=== PATIENT | female | born 1950 | race African-American/Black ===

== ENCOUNTER 2018-02-02 20:25 | Inpatient (IN) | payer MEDICARE, MEDICAID ==
[~2018-02-02] VITALS: Ht 160 cm; Wt 64.9 kg
[2018-02-02 20:25] VITALS: BP 127/69
[~2018-02-02 20:25] MED LIST: APIX2.5T PO; APIX5TAB PO; ASPI-867 PO; ATOR20TA65 PO; DIGO125T82 PO; DIGO250T81 PO; DILT180C3 PO; SERT-112 PO; SERT100T PO; THIA100T72 PO
[2018-02-02 21:00] VITALS: BP 127/69
[2018-02-02] MEDS ORDERED: DIPHENHYDRAMINE 50MG/ML VIAL IV PRN (21:30)
[2018-02-02] MEDS ORDERED: CLONIDINE 0.1MG TABLET PO PRN (21:30)
[2018-02-02] MEDS ORDERED: IPRATROPIUM/ALBUTEROL 0.5-3(2.5)MG/3ML NEB INH PRN (21:30)
[2018-02-02] MEDS ORDERED: NA PHOS,M-B/NA PHOS,DI-BA ENEMA 118ML PR PRN (21:30)
[2018-02-02] MEDS ORDERED: GUAIFENESIN 200MG/10ML SUGAR FREE UDC PO PRN (21:30)
[2018-02-02] MEDS ORDERED: MAGNESIUM/ALUMINUM HYDROXIDE/SIMETHICONE 30ML UDC PO PRN (21:30)
[2018-02-02] MEDS ORDERED: ONDANSETRON 4MG ODT PO PRN (21:30)
[2018-02-02] MEDS ORDERED: DOCUSATE SODIUM 100MG CAPSULE PO PRN (21:30)
[2018-02-02] MEDS: SODIUM CHLORIDE 0.9% INJ 3ML FLUSH IVF SCH (22:50)
[2018-02-03] MEDS: SODIUM CHLORIDE 0.9% INJ 3ML FLUSH IVF SCH ×3 (06:38→21:36)
[2018-02-03 07:06] LABS: CHLORIDE 103 mEq/L (98-107)
[2018-02-03 07:50] LABS: HEMATOCRIT. 36.2 % (36.0-48.0); HEMOGLOBIN. 12.4 g/dL (12.0-16.0); MEAN CORPUSCULAR HEMOGLOBIN 36.4 pg (28.0-32.0); MEAN CORPUSCULAR VOLUME 105.9 fL (81.0-99.0); MEAN PLATELET VOLUME 8.8 fl (7.4-10.4); PLATELET 207 x1000/uL (130-400); RED BLOOD CELL COUNT 3.41 mill/uL (4.2-5.4); RED CELL DISTRIBUTION WIDTH 13.1 % (11.6-14.6)
[2018-02-03 08:00] VITALS: BP 163/76
[2018-02-03 08:03] LABS: LDL CHOLESTEROL 48 mg/dL (5-100)
[2018-02-03 08:04] LABS: HDL CHOLESTEROL 33 mg/dL (40-59)
[2018-02-03] MEDS: DILTIAZEM HCL 180MG CAPSULE CD 24HR PO SCH (09:14)
[2018-02-03] MEDS: HYDROCODONE/ACETAMINOPHEN 5/325MG TABLET PO PRN (09:15)
[2018-02-03] MEDS: SERTRALINE HCL 100MG TABLET PO SCH (09:16)
[2018-02-03] MEDS: APIXABAN 2.5 MG TABLET PO SCH ×2 (09:16→18:15)
[2018-02-03] MEDS: ASPIRIN 325MG EC TABLET PO SCH (09:16)
[2018-02-03 10:40] VITALS: BP 131/66
[2018-02-03 15:52] LABS: PLATELET ESTIMATE NORMAL
[2018-02-03] MEDS: DIGOXIN 125MCG TABLET PO SCH (18:16)
[2018-02-03 20:00] VITALS: BP 117/72
[2018-02-04] MEDS: SODIUM CHLORIDE 0.9% INJ 3ML FLUSH IVF SCH ×2 (06:15→14:00)
[2018-02-04] MEDS: HYDROCODONE/ACETAMINOPHEN 5/325MG TABLET PO PRN ×2 (06:40→21:51)
[2018-02-04 08:00] VITALS: BP 130/81
[2018-02-04] MEDS: APIXABAN 2.5 MG TABLET PO SCH ×2 (09:31→18:17)
[2018-02-04] MEDS: ASPIRIN 325MG EC TABLET PO SCH (09:31)
[2018-02-04] MEDS: SERTRALINE HCL 100MG TABLET PO SCH (09:31)
[2018-02-04] MEDS: DILTIAZEM HCL 180MG CAPSULE CD 24HR PO SCH (09:32)
[2018-02-04 09:44] LABS: HEPATITIS B SURFACE ANTIGEN NEGATIVE
[2018-02-04 10:12] LABS: HEPATITIS B CORE AB IGM NEGATIVE
[2018-02-04 10:13] LABS: HEPATITIS A AB IGM NEGATIVE (NEGATIVE)
[2018-02-04] MEDS ORDERED: MEGESTROL ACETATE 400 MG/10 ML UDC PO SCH (17:00)
[2018-02-04] MEDS: MEGESTROL ACETATE 400 MG/10 ML UDC PO SCH (18:16)
[2018-02-04] MEDS: DIGOXIN 125MCG TABLET PO SCH (18:17)
[2018-02-04 20:00] VITALS: BP 135/60
[2018-02-05] MEDS: ACETAMINOPHEN 325MG TABLET PO PRN (03:21)
[2018-02-05 08:00] VITALS: BP 150/63
[2018-02-05] MEDS: ASPIRIN 325MG EC TABLET PO SCH (08:24)
[2018-02-05] MEDS: DILTIAZEM HCL 180MG CAPSULE CD 24HR PO SCH (08:25)
[2018-02-05] MEDS: SERTRALINE HCL 100MG TABLET PO SCH (08:25)
[2018-02-05] MEDS: MEGESTROL ACETATE 400 MG/10 ML UDC PO SCH (08:25)
[2018-02-05] MEDS: APIXABAN 2.5 MG TABLET PO SCH ×2 (08:25→17:01)
[2018-02-05] MEDS: DIGOXIN 125MCG TABLET PO SCH (17:01)
[2018-02-05 17:05] VITALS: BP 108/63
[2018-02-05] MEDS: HYDROCODONE/ACETAMINOPHEN 5/325MG TABLET PO PRN ×2 (17:11→22:33)
[2018-02-05 20:00] VITALS: BP 104/60
[2018-02-06 08:00] VITALS: BP 105/60
[2018-02-06] MEDS: APIXABAN 2.5 MG TABLET PO SCH ×2 (08:36→17:34)
[2018-02-06] MEDS: MEGESTROL ACETATE 400 MG/10 ML UDC PO SCH (08:36)
[2018-02-06] MEDS: DILTIAZEM HCL 180MG CAPSULE CD 24HR PO SCH (08:37)
[2018-02-06] MEDS: ASPIRIN 325MG EC TABLET PO SCH (08:37)
[2018-02-06] MEDS: SERTRALINE HCL 100MG TABLET PO SCH (08:37)
[2018-02-06] MEDS: HYDROCODONE/ACETAMINOPHEN 5/325MG TABLET PO PRN ×2 (08:41→21:58)
[2018-02-06] MEDS: DIGOXIN 125MCG TABLET PO SCH (17:34)
[2018-02-06 20:00] VITALS: BP 114/61
[2018-02-07 07:28] LABS: HEMATOCRIT. 34.2 % (36.0-48.0); HEMOGLOBIN. 11.8 g/dL (12.0-16.0); MEAN CORPUSCULAR HEMOGLOBIN 36.3 pg (28.0-32.0); MEAN CORPUSCULAR VOLUME 105.6 fL (81.0-99.0); MEAN PLATELET VOLUME 7.7 fl (7.4-10.4); PLATELET 434 x1000/uL (130-400); RED BLOOD CELL COUNT 3.24 mill/uL (4.2-5.4); RED CELL DISTRIBUTION WIDTH 13.3 % (11.6-14.6)
[2018-02-07 07:49] LABS: CHLORIDE 103 mEq/L (98-107)
[2018-02-07 08:00] VITALS: BP 120/66
[2018-02-07] MEDS: SERTRALINE HCL 100MG TABLET PO SCH (09:09)
[2018-02-07] MEDS: APIXABAN 2.5 MG TABLET PO SCH ×2 (09:09→17:09)
[2018-02-07] MEDS: ASPIRIN 325MG EC TABLET PO SCH (09:09)
[2018-02-07] MEDS: MEGESTROL ACETATE 400 MG/10 ML UDC PO SCH (09:09)
[2018-02-07] MEDS: DILTIAZEM HCL 180MG CAPSULE CD 24HR PO SCH (09:09)
[2018-02-07 11:18] LABS: ATYPICAL LYMPHOCYTES 1; PLATELET ESTIMATE SLIGHTLY INCREASED
[2018-02-07] MEDS: HYDROCODONE/ACETAMINOPHEN 5/325MG TABLET PO PRN (15:02)
[2018-02-07] MEDS: DIGOXIN 125MCG TABLET PO SCH (17:09)
[2018-02-07 20:00] VITALS: BP 143/60
[2018-02-07] MEDS ORDERED: POTASSIUM CHLORIDE 20MEQ TABLET SR PO NR (21:00)
[2018-02-08] MEDS: HYDROCODONE/ACETAMINOPHEN 5/325MG TABLET PO PRN ×2 (06:31→23:19)
[2018-02-08 07:34] LABS: CHLORIDE 104 mEq/L (98-107)
[2018-02-08 08:00] VITALS: BP 107/65
[2018-02-08] MEDS: ASPIRIN 325MG EC TABLET PO SCH (09:10)
[2018-02-08] MEDS: SERTRALINE HCL 100MG TABLET PO SCH (09:10)
[2018-02-08] MEDS: MEGESTROL ACETATE 400 MG/10 ML UDC PO SCH (09:10)
[2018-02-08] MEDS: APIXABAN 2.5 MG TABLET PO SCH ×2 (09:10→17:36)
[2018-02-08] MEDS: DILTIAZEM HCL 180MG CAPSULE CD 24HR PO SCH (09:18)
[2018-02-08] MEDS: DIGOXIN 125MCG TABLET PO SCH (17:37)
[2018-02-08 20:00] VITALS: BP 117/70
[2018-02-08] MEDS: ACETAMINOPHEN 325MG TABLET PO PRN (23:04)
[2018-02-09 07:00] VITALS: BP 133/55
[2018-02-09] MEDS: MEGESTROL ACETATE 400 MG/10 ML UDC PO SCH (08:44)
[2018-02-09] MEDS: ASPIRIN 325MG EC TABLET PO SCH (08:44)
[2018-02-09] MEDS: SERTRALINE HCL 100MG TABLET PO SCH (08:44)
[2018-02-09] MEDS: APIXABAN 2.5 MG TABLET PO SCH ×2 (08:44→17:22)
[2018-02-09] MEDS: DILTIAZEM HCL 180MG CAPSULE CD 24HR PO SCH (08:45)
[2018-02-09] MEDS: HYDROCODONE/ACETAMINOPHEN 5/325MG TABLET PO PRN (08:49)
[2018-02-09] MEDS: DIGOXIN 125MCG TABLET PO SCH (17:22)
[2018-02-09 20:00] VITALS: BP 116/72
[2018-02-09] MEDS: HYDROCODONE/ACETAMINOPHEN 5/325MG TABLET PO SCH (21:22)
[2018-02-09 23:43] VITALS: BP 118/70
[2018-02-10 07:57] VITALS: BP 138/80
[2018-02-10 08:00] VITALS: BP 138/80
[2018-02-10] MEDS: MEGESTROL ACETATE 400 MG/10 ML UDC PO SCH ×2 (08:38→09:00)
[2018-02-10] MEDS: ASPIRIN 325MG EC TABLET PO SCH (08:39)
[2018-02-10] MEDS: APIXABAN 2.5 MG TABLET PO SCH ×2 (08:39→17:30)
[2018-02-10] MEDS: DILTIAZEM HCL 180MG CAPSULE CD 24HR PO SCH (08:39)
[2018-02-10] MEDS: SERTRALINE HCL 100MG TABLET PO SCH (08:39)
[2018-02-10] MEDS: HYDROCODONE/ACETAMINOPHEN 5/325MG TABLET PO PRN ×2 (08:41→13:37)
[2018-02-10] MEDS: DIGOXIN 125MCG TABLET PO SCH (17:30)
[2018-02-10 20:00] VITALS: BP 128/71
[2018-02-11] MEDS: HYDROCODONE/ACETAMINOPHEN 5/325MG TABLET PO SCH ×2 (00:01→21:41)
[2018-02-11] MEDS: ASPIRIN 325MG EC TABLET PO SCH (09:01)
[2018-02-11] MEDS: SERTRALINE HCL 100MG TABLET PO SCH (09:01)
[2018-02-11] MEDS: APIXABAN 2.5 MG TABLET PO SCH ×2 (09:01→18:34)
[2018-02-11] MEDS: MEGESTROL ACETATE 400 MG/10 ML UDC PO SCH (09:01)
[2018-02-11] MEDS: DILTIAZEM HCL 180MG CAPSULE CD 24HR PO SCH (09:28)
[2018-02-11 12:00] VITALS: BP 118/82
[2018-02-11] MEDS: HYDROCODONE/ACETAMINOPHEN 5/325MG TABLET PO PRN (12:43)
[2018-02-11] MEDS: DIGOXIN 125MCG TABLET PO SCH (18:34)
[2018-02-11 20:00] VITALS: BP 118/74
[2018-02-12 08:00] VITALS: BP 134/75
[2018-02-12] MEDS: MEGESTROL ACETATE 400 MG/10 ML UDC PO SCH (09:25)
[2018-02-12] MEDS: ASPIRIN 325MG EC TABLET PO SCH (09:25)
[2018-02-12] MEDS: APIXABAN 2.5 MG TABLET PO SCH (09:26)
[2018-02-12] MEDS: SERTRALINE HCL 100MG TABLET PO SCH (09:26)
[2018-02-12] MEDS: DILTIAZEM HCL 180MG CAPSULE CD 24HR PO SCH (09:26)
[2018-02-12 13:53] VITALS: BP 134/75
== END 2018-02-12 14:50 | disposition home health service (06) | DRG 563 ==
PROVIDERS: ADMIT Psychiatry & Neurology Neurology; ATTEND Family Medicine
DX: S42.144A Nondisplaced fracture of glenoid cavity of scapula, right shoulder, initial encounter for closed fracture (principal); M62.82 Rhabdomyolysis; I48.1 Persistent atrial fibrillation; I48.92 Unspecified atrial flutter; N39.0 Urinary tract infection, site not specified; E46 Unspecified protein-calorie malnutrition; F33.1 Major depressive disorder, recurrent, moderate; I50.30 Unspecified diastolic (congestive) heart failure; W01.0XXA Fall on same level from slipping, tripping and stumbling without subsequent striking against object, initial encounter; R79.89 Other specified abnormal findings of blood chemistry; Y90.1 Blood alcohol level of 20-39 mg/100 ml; E78.5 Hyperlipidemia, unspecified; K57.90 Diverticulosis of intestine, part unspecified, without perforation or abscess without bleeding; E87.6 Hypokalemia; F03.90 Unspecified dementia, unspecified severity, without behavioral disturbance, psychotic disturbance, mood disturbance, and anxiety; M81.0 Age-related osteoporosis without current pathological fracture; R74.0 Nonspecific elevation of levels of transaminase and lactic acid dehydrogenase [LDH]; K82.4 Cholesterolosis of gallbladder; K76.0 Fatty (change of) liver, not elsewhere classified; F17.210 Nicotine dependence, cigarettes, uncomplicated; E11.42 Type 2 diabetes mellitus with diabetic polyneuropathy; F41.9 Anxiety disorder, unspecified; G89.4 Chronic pain syndrome; I11.0 Hypertensive heart disease with heart failure; I49.5 Sick sinus syndrome; K70.0 Alcoholic fatty liver; F10.129 Alcohol abuse with intoxication, unspecified; Y93.89 Activity, other specified; Y92.89 Other specified places as the place of occurrence of the external cause; Y99.8 Other external cause status; Z79.01 Long term (current) use of anticoagulants; Z95.0 Presence of cardiac pacemaker; Z85.038 Personal history of other malignant neoplasm of large intestine; Z86.73 Personal history of transient ischemic attack (TIA), and cerebral infarction without residual deficits; Z68.25 Body mass index [BMI] 25.0-25.9, adult
CPT/HCPCS: 36415; 76700; 80048; 80053; 80061; 80076; 82248; 85025; 86705; 86709; 86803; 86900; 87340; 92523; 93005; 97110; 97112; 97116; 97140; 97162; 97166; 97530; 97535; G0515

== ENCOUNTER 2018-10-19 05:31 | Inpatient (IN) | payer MEDICARE, MEDICAID ==
[~2018-10-19] VITALS: Ht 157.5 cm; Wt 73.0 kg
[~2018-10-19 05:31] MED LIST changes: -APIX5TAB PO; +ASA5EC PO; -ASPI-867 PO; -DIGO250T81 PO; -SERT100T PO
[2018-10-19 05:50] LABS: BASOPHILS % 0.5 % (0.0-2.0); EOSINOPHILS % 0.1 % (0.0-5.0); HEMATOCRIT. 38.4 % (36.0-48.0); HEMOGLOBIN. 13.5 g/dL (12.0-16.0); LYMPHOCYTES % 68.7 % (20.0-50.0); MEAN CORPUSCULAR VOLUME 111.1 fL (81.0-99.0); MEAN PLATELET VOLUME 8.3 fl (7.4-10.4); MONOCYTES % 10.3 % (2.0-8.0); NEUTROPHILS % 20.4 % (40.0-76.0); PLATELET 122 x1000/uL (130-400); RED BLOOD CELL COUNT 3.45 mill/uL (4.2-5.4); RED CELL DISTRIBUTION WIDTH 14.3 % (11.6-14.6)
[2018-10-19 05:54] LABS: CHLORIDE 108 mEq/L (98-107)
[2018-10-19 05:57] LABS: INR 1.2
[2018-10-19 05:58] LABS: ETHANOL BLOOD 234 mg/dL
[2018-10-19] MEDS ORDERED: GUAIFENESIN 200MG/10ML SUGAR FREE UDC PO PRN (07:45)
[2018-10-19] MEDS ORDERED: DOCUSATE SODIUM 100MG CAPSULE PO PRN (07:45)
[2018-10-19] MEDS ORDERED: ACETAMINOPHEN 325MG TABLET PO PRN (07:45)
[2018-10-19] MEDS ORDERED: ONDANSETRON HCL 4MG/2ML INJ IV PRN (07:45)
[2018-10-19] MEDS ORDERED: CLONIDINE 0.1MG TABLET PO PRN (07:45)
[2018-10-19] MEDS ORDERED: AMLODIPINE 10MG TABLET PO NR (09:00)
[2018-10-19] MEDS: SODIUM CHLORIDE 0.45% 1,000 ML IV SCH (09:03)
[2018-10-19 10:37] VITALS: BP 140/88
[2018-10-19 12:00] VITALS: BP 156/96
[2018-10-19] MEDS ORDERED: POTASSIUM CHLORIDE 20MEQ TABLET SR PO SCH (13:15)
[2018-10-19] MEDS ORDERED: DILTIAZEM HCL 5MG/ML 5ML VIAL IV PRN (13:15)
[2018-10-19] MEDS: DILTIAZEM HCL 180MG CAPSULE CD 24HR PO SCH (14:39)
[2018-10-19] MEDS: LOSARTAN POTASSIUM 25 MG TABLET PO SCH (14:39)
[2018-10-19] MEDS: THIAMINE HCL 100MG TABLET PO SCH (14:39)
[2018-10-19] MEDS: APIXABAN 2.5 MG TABLET PO SCH ×2 (14:39→22:40)
[2018-10-19] MEDS: SERTRALINE HCL 100MG TABLET PO SCH (14:39)
[2018-10-19 16:00] VITALS: BP 158/92
[2018-10-19] MEDS ORDERED: DIGOXIN 125MCG TABLET PO SCH (18:00)
[2018-10-19] MEDS: DIGOXIN 250MCG TABLET PO SCH (19:00)
[2018-10-19 20:00] VITALS: BP 132/78
[2018-10-19] MEDS: HYDROCODONE/ACETAMINOPHEN 5/325MG TABLET PO PRN (22:41)
[2018-10-20] VITALS: BP 97/76
[2018-10-20] MEDS: HYDROCODONE/ACETAMINOPHEN 5/325MG TABLET PO PRN (02:53)
[2018-10-20 04:00] VITALS: BP_SYST 137; BP_SYST 140; BP_DIAS 72; BP_DIAS 82
[2018-10-20 07:27] LABS: HEMATOCRIT. 35.4 % (36.0-48.0); HEMOGLOBIN. 12.2 g/dL (12.0-16.0); MEAN CORPUSCULAR HEMOGLOBIN 38.8 pg (28.0-32.0); PLATELET 103 x1000/uL (130-400); RED BLOOD CELL COUNT 3.13 mill/uL (4.2-5.4); RED CELL DISTRIBUTION WIDTH 14.6 % (11.6-14.6)
[2018-10-20 08:00] VITALS: BP 126/67
[2018-10-20 08:17] LABS: CHLORIDE 106 mEq/L (98-107)
[2018-10-20] MEDS ORDERED: LORAZEPAM 2MG/ML CPJ IV PRN (08:30)
[2018-10-20 08:31] LABS: LDL CHOLESTEROL 108 mg/dL (5-100)
[2018-10-20 08:32] LABS: HDL CHOLESTEROL 56 mg/dL (40-59)
[2018-10-20] MEDS ORDERED: AMLODIPINE 10MG TABLET PO SCH (09:00)
[2018-10-20] MEDS: APIXABAN 2.5 MG TABLET PO SCH (09:11)
[2018-10-20] MEDS: THIAMINE HCL 100MG TABLET PO SCH (09:11)
[2018-10-20] MEDS: DILTIAZEM HCL 180MG CAPSULE CD 24HR PO SCH (09:11)
[2018-10-20] MEDS: LOSARTAN POTASSIUM 25 MG TABLET PO SCH (09:12)
[2018-10-20] MEDS: SERTRALINE HCL 100MG TABLET PO SCH (09:12)
[2018-10-20] MEDS ORDERED: MAGNESIUM SULFATE 3 GM in DEXT 5% WATER 96 ML IV SCH (10:00)
[2018-10-20 10:24] LABS: PLATELET ESTIMATE SLIGHTLY DECREASED
[2018-10-20] MEDS ORDERED: POTASSIUM CHLORIDE 20MEQ TABLET SR PO NR (10:30)
[2018-10-20] MEDS: CHLORDIAZEPOXIDE 25MG CAPSULE PO SCH ×3 (10:39→21:01)
[2018-10-20 12:00] VITALS: BP 118/69
[2018-10-20 16:00] VITALS: BP 98/50
[2018-10-20] MEDS: SODIUM CHLORIDE 0.45% 1,000 ML IV SCH (18:20)
[2018-10-20] MEDS: DIGOXIN 250MCG TABLET PO SCH (18:58)
[2018-10-20 20:06] VITALS: BP 97/62
[2018-10-20] MEDS ORDERED: ATORVASTATIN CALCIUM 40MG TABLET PO SCH (21:00)
[2018-10-20] MEDS: APIXABAN 5 MG TABLET PO SCH (21:01)
[2018-10-21 00:05] VITALS: BP 103/58
[2018-10-21 03:59] LABS: *AMPHETAMINES SCREEN URINE NEGATIVE (NEGATIVE); *BARBITURATES SCREEN URINE NEGATIVE (NEGATIVE)
[2018-10-21 04:00] VITALS: BP 103/63
[2018-10-21 04:00] LABS: *BENZODIAZEPINES SCREEN URINE PRESUMTIVE POSITIVE (NEGATIVE); *COCAINE SCREEN URINE NEGATIVE (NEGATIVE); METHADONE URINE SCREEN NEGATIVE (NEGATIVE); OPIATES URINE SCREEN PRESUMTIVE POSITIVE (NEGATIVE); PHENCYCLIDINE URINE SCREEN NEGATIVE (NEGATIVE)
[2018-10-21 04:01] LABS: CANNABINOID URINE SCREEN NEGATIVE (NEGATIVE)
[2018-10-21] MEDS: CHLORDIAZEPOXIDE 25MG CAPSULE PO SCH ×2 (05:49→14:00)
[2018-10-21 07:06] LABS: BASOPHILS % 0.3 % (0.0-2.0); EOSINOPHILS % 0.3 % (0.0-5.0); HEMOGLOBIN. 11.6 g/dL (12.0-16.0); LYMPHOCYTES % 26.4 % (20.0-50.0); MEAN CORPUSCULAR HEMOGLOBIN 39.1 pg (28.0-32.0); MEAN CORPUSCULAR VOLUME 114.2 fL (81.0-99.0); MEAN PLATELET VOLUME 9.5 fl (7.4-10.4); MONOCYTES % 14.5 % (2.0-8.0); NEUTROPHILS % 58.5 % (40.0-76.0); PLATELET 98 x1000/uL (130-400); RED BLOOD CELL COUNT 2.97 mill/uL (4.2-5.4); RED CELL DISTRIBUTION WIDTH 14.7 % (11.6-14.6)
[2018-10-21 07:46] LABS: CHLORIDE 107 mEq/L (98-107)
[2018-10-21 08:00] VITALS: BP 102/71
[2018-10-21] MEDS: LOSARTAN POTASSIUM 25 MG TABLET PO SCH ×2 (09:00→09:18)
[2018-10-21] MEDS: DILTIAZEM HCL 180MG CAPSULE CD 24HR PO SCH (09:00)
[2018-10-21] MEDS: THIAMINE HCL 100MG TABLET PO SCH (09:18)
[2018-10-21] MEDS: SERTRALINE HCL 100MG TABLET PO SCH (09:18)
[2018-10-21] MEDS: APIXABAN 5 MG TABLET PO SCH (09:18)
[2018-10-21] MEDS: SODIUM CHLORIDE 0.45% 1,000 ML IV SCH (11:00)
[2018-10-21 11:52] VITALS: BP 91/50
== END 2018-10-21 15:15 | disposition home health service (06) | DRG 897 ==
LOC: ER 05:31 → 7WST 07:01 → SUPCPDRO 07:41 → ENRESERV 10:05
PROVIDERS: ADMIT Hospitalist; ATTEND Hospitalist
DX: F10.239 Alcohol dependence with withdrawal, unspecified (principal); D68.59 Other primary thrombophilia; I48.92 Unspecified atrial flutter; I48.0 Paroxysmal atrial fibrillation; R74.0 Nonspecific elevation of levels of transaminase and lactic acid dehydrogenase [LDH]; F10.229 Alcohol dependence with intoxication, unspecified; D69.6 Thrombocytopenia, unspecified; I25.10 Atherosclerotic heart disease of native coronary artery without angina pectoris; E83.42 Hypomagnesemia; E78.5 Hyperlipidemia, unspecified; E78.00 Pure hypercholesterolemia, unspecified; I49.5 Sick sinus syndrome; I10 Essential (primary) hypertension; Y90.7 Blood alcohol level of 200-239 mg/100 ml; I48.2 Chronic atrial fibrillation; F32.9 Major depressive disorder, single episode, unspecified; F41.9 Anxiety disorder, unspecified; I25.2 Old myocardial infarction; Z72.0 Tobacco use; Z79.01 Long term (current) use of anticoagulants; Z86.73 Personal history of transient ischemic attack (TIA), and cerebral infarction without residual deficits; Z79.82 Long term (current) use of aspirin; Z79.899 Other long term (current) drug therapy
CPT/HCPCS: 36415; 71045; 80061; 80162; 80305; 80320; 83735; 83880; 84484; 85379; 93005; 93306; 93970; 97162; 99285; J2060; J2405; J3475; J7060; G0480

== ENCOUNTER 2019-04-08 13:23 | Inpatient (IN) | payer MEDICAID, MEDICARE ==
[~2019-04-08] VITALS: Ht 160 cm; Wt 62.1 kg
[~2019-04-08 13:23] MED LIST changes: -ASA5EC PO; +ASPI325T85 PO
[2019-04-08] MEDS ORDERED: DILTIAZEM HCL 30MG TABLET PO ONE (14:15)
[2019-04-08] MEDS ORDERED: DILTIAZEM HCL 5MG/ML 5ML VIAL IV ONE ×2 (14:15→16:00)
[2019-04-08 14:37] LABS: BASOPHILS % 0.4 % (0.0-2.0); EOSINOPHILS % 0.1 % (0.0-5.0); HEMATOCRIT. 27.7 % (36.0-48.0); HEMOGLOBIN. 9.7 g/dL (12.0-16.0); LYMPHOCYTES % 21.5 % (20.0-50.0); MEAN CORPUSCULAR HEMOGLOBIN 40.1 pg (28.0-32.0); MEAN CORPUSCULAR VOLUME 114.8 fL (81.0-99.0); MONOCYTES % 13.5 % (2.0-8.0); NEUTROPHILS % 64.5 % (40.0-76.0); PLATELET 129 x1000/uL (130-400); RED BLOOD CELL COUNT 2.41 mill/uL (4.2-5.4); RED CELL DISTRIBUTION WIDTH 15.1 % (11.6-14.6)
[2019-04-08 14:41] LABS: CHLORIDE 100 mEq/L (98-107); INR 1.6; PARTIAL THROMBOPLASTIN TIME 28.8 sec (23.4-31.0); PROTHROMBIN TIME 15.7 sec (9.6-11.0)
[2019-04-08 14:46] LABS: ETHANOL BLOOD < 10 mg/dL
[2019-04-08 14:56] LABS: CREATINE KINASE MB FRACTION 5.2 ng/mL (0.5-3.6)
[2019-04-08] MEDS ORDERED: LORAZEPAM 2MG/ML CPJ IV ONE ×2 (15:00→20:30)
[2019-04-08 15:03] LABS: CREATINE KINASE 1198 IU/L (26-192)
[2019-04-08 15:08] LABS: DIGOXIN 0.2 ng/mL (0.9-2.0)
[2019-04-08] MEDS ORDERED: DILTIAZEM HCL 125 MG in DEXT 5% WATER 100 ML IV ONE ×2 (16:00→16:15)
[2019-04-08] MEDS ORDERED: SODIUM CHLORIDE 0.9% 1,000 ML IV ONE (16:43)
[2019-04-08] MEDS ORDERED: CALCIUM CHLORIDE 1GM/10ML SYR IV ONE (16:45)
[2019-04-08 17:37] LABS: HEPATITIS B SURFACE ANTIGEN NEGATIVE
[2019-04-08 18:07] LABS: HEPATITIS A AB IGM NEGATIVE (NEGATIVE)
[2019-04-08] MEDS ORDERED: AMIODARONE HCL 150 MG in DEXT 5% WATER 100 ML IV ONE (20:00)
[2019-04-08 20:05] LABS: CLARITY URINE CLOUDY (CLEAR); COLOR URINE DARK YELLOW (YELLOW); KETONES URINE TRACE (NEGATIVE); LEUKOCYTE ESTERASE URINE 1+ (NEGATIVE); NITRITE URINE POSITIVE (NEGATIVE); OCCULT BLOOD URINE NEGATIVE (NEGATIVE); PROTEIN URINE TRACE (NEGATIVE); SPECIFIC GRAVITY URINE 1.023 (1.005-1.030)
[2019-04-08 20:23] LABS: *AMPHETAMINES SCREEN URINE NEGATIVE (NEGATIVE); CANNABINOID URINE SCREEN NEGATIVE (NEGATIVE)
[2019-04-08 20:24] LABS: *BARBITURATES SCREEN URINE NEGATIVE (NEGATIVE); *BENZODIAZEPINES SCREEN URINE PRESUMTIVE POSITIVE (NEGATIVE); *COCAINE SCREEN URINE NEGATIVE (NEGATIVE); METHADONE URINE SCREEN NEGATIVE (NEGATIVE); OPIATES URINE SCREEN NEGATIVE (NEGATIVE)
[2019-04-08 20:25] LABS: PHENCYCLIDINE URINE SCREEN NEGATIVE (NEGATIVE)
[2019-04-08] MEDS ORDERED: DIAZEPAM 2 MG TABLET PO ONE (21:00)
[2019-04-08 22:00] VITALS: BP 104/73
[2019-04-08] MEDS ORDERED: POTASSIUM CHLORIDE 20MEQ TABLET SR PO ONE (22:00)
[2019-04-08 22:15] VITALS: BP 111/75
[2019-04-08 22:30] VITALS: BP 114/72
[2019-04-08 23:45] VITALS: BP 110/76
[2019-04-09] VITALS (89 sets, daily range): BP systolic 89–152; BP diastolic 54–102
[2019-04-09] MEDS: DILTIAZEM HCL 125 MG in DEXT 5% WATER 100 ML IV PRN ×3 (01:14→17:19)
[2019-04-09 05:21] LABS: HEMATOCRIT. 24.2 % (36.0-48.0); HEMOGLOBIN. 8.4 g/dL (12.0-16.0); MEAN CORPUSCULAR HEMOGLOBIN 39.8 pg (28.0-32.0); MEAN PLATELET VOLUME 10.2 fl (7.4-10.4); PLATELET 120 x1000/uL (130-400); RED BLOOD CELL COUNT 2.12 mill/uL (4.2-5.4); RED CELL DISTRIBUTION WIDTH 14.9 % (11.6-14.6)
[2019-04-09 05:23] LABS: CHLORIDE 105 mEq/L (98-107)
[2019-04-09] MEDS: CHLORDIAZEPOXIDE 5 MG CAPSULE PO SCH ×3 (06:13→21:31)
[2019-04-09] MEDS ORDERED: DIGOXIN 500MCG/2ML AMP IV NR ×2 (08:00→11:00)
[2019-04-09] MEDS: SERTRALINE HCL 100MG TABLET PO SCH (08:34)
[2019-04-09] MEDS: THIAMINE HCL 100MG TABLET PO SCH (08:34)
[2019-04-09 08:44] LABS: NUCLEATED RED BLOOD CELLS 6 /100 WBC; PLATELET ESTIMATE NORMAL
[2019-04-09] MEDS ORDERED: APIXABAN 2.5 MG TABLET PO SCH (09:00)
[2019-04-09] MEDS: MAGNESIUM 2 G PREMIX 50 ML IV SCH (09:00)
[2019-04-09] MEDS ORDERED: KCL 20MEQ/100ML PREMIX 100 ML IV NR ×2 (09:00→21:00)
[2019-04-09] MEDS ORDERED: ASPIRIN 81MG TABLET PO SCH (09:00)
[2019-04-09 17:35] LABS: HEMATOCRIT 26.7 % (36.0-48.0); HEMOGLOBIN 9.2 g/dL (12.0-16.0); MEAN CORPUSCULAR HEMOGLOBIN 39.7 pg (28.0-32.0); MEAN CORPUSCULAR VOLUME 115.2 fL (81.0-99.0); PLATELET 121 x1000/uL (130-400); RED BLOOD CELL COUNT 2.31 mill/uL (4.2-5.4); RED CELL DISTRIBUTION WIDTH 15.1 % (11.6-14.6)
[2019-04-09 17:42] LABS: INR 1.4; PARTIAL THROMBOPLASTIN TIME 27.5 sec (23.4-31.0); PROTHROMBIN TIME 14.3 sec (9.6-11.0)
[2019-04-09 17:47] LABS: CHLORIDE 102 mEq/L (98-107)
[2019-04-09 18:38] LABS: VITAMIN B12 SERUM > 2000.0 pg/mL (211-911)
[2019-04-09] MEDS ORDERED: ATORVASTATIN CALCIUM 20MG TABLET PO SCH (21:00)
[2019-04-09] MEDS: METOPROLOL TARTRATE 50MG TABLET PO SCH (21:31)
[2019-04-10] VITALS (78 sets, daily range): BP systolic 50–138; BP diastolic 31–85
[2019-04-10] MEDS: DILTIAZEM HCL 125 MG in DEXT 5% WATER 100 ML IV PRN (05:39)
[2019-04-10 05:51] LABS: HEMATOCRIT. 25.6 % (36.0-48.0); MEAN CORPUSCULAR HEMOGLOBIN 40.6 pg (28.0-32.0); MEAN CORPUSCULAR VOLUME 115.9 fL (81.0-99.0); MEAN PLATELET VOLUME 10.3 fl (7.4-10.4); PLATELET 123 x1000/uL (130-400); RED BLOOD CELL COUNT 2.21 mill/uL (4.2-5.4); RED CELL DISTRIBUTION WIDTH 15.3 % (11.6-14.6)
[2019-04-10 06:20] LABS: CHLORIDE 105 mEq/L (98-107)
[2019-04-10] MEDS: CHLORDIAZEPOXIDE 5 MG CAPSULE PO SCH ×3 (06:58→21:32)
[2019-04-10] MEDS ORDERED: POTASSIUM CHLORIDE 20MEQ TABLET SR PO SCH (07:30)
[2019-04-10] MEDS: METOPROLOL TARTRATE 50MG TABLET PO SCH ×2 (08:29→21:00)
[2019-04-10] MEDS: SERTRALINE HCL 100MG TABLET PO SCH (08:29)
[2019-04-10] MEDS: LACTULOSE 20G/30ML UDC PO SCH ×3 (08:29→21:32)
[2019-04-10] MEDS: FOLIC ACID 1MG TABLET PO SCH (08:30)
[2019-04-10] MEDS: SODIUM CHLORIDE 0.45% 1,000 ML IV SCH (08:30)
[2019-04-10] MEDS: THIAMINE HCL 100MG TABLET PO SCH (08:30)
[2019-04-10] MEDS ORDERED: MAGNESIUM 2 G PREMIX 50 ML IV SCH (09:00)
[2019-04-10 09:08] LABS: NUCLEATED RED BLOOD CELLS 3 /100 WBC
[2019-04-10 09:09] LABS: PLATELET ESTIMATE SLIGHTLY DECREASED
[2019-04-10] MEDS: MAGNESIUM 2 G PREMIX 50 ML IV SCH (09:44)
[2019-04-10] MEDS: ENOXAPARIN 40MG/0.4ML SYR SUBCUT SCH (12:41)
[2019-04-10] MEDS: CEFTRIAXONE 1 G PREMIX 50 ML IV SCH (12:41)
[2019-04-11] VITALS (20 sets, daily range): BP systolic 99–138; BP diastolic 58–95
[2019-04-11] MEDS: SODIUM CHLORIDE 0.45% 1,000 ML IV SCH ×2 (01:24→17:50)
[2019-04-11] MEDS: LACTULOSE 20G/30ML UDC PO SCH ×3 (05:27→21:21)
[2019-04-11] MEDS: CHLORDIAZEPOXIDE 5 MG CAPSULE PO SCH ×3 (05:28→21:21)
[2019-04-11 05:41] LABS: HEMOGLOBIN. 8.6 g/dL (12.0-16.0); MEAN CORPUSCULAR HEMOGLOBIN 39.8 pg (28.0-32.0); MEAN CORPUSCULAR VOLUME 115.5 fL (81.0-99.0); PLATELET 139 x1000/uL (130-400); RED BLOOD CELL COUNT 2.16 mill/uL (4.2-5.4); RED CELL DISTRIBUTION WIDTH 15.7 % (11.6-14.6)
[2019-04-11 06:15] LABS: CHLORIDE 105 mEq/L (98-107)
[2019-04-11 06:22] LABS: PHOSPHORUS 2.3 mg/dL (2.5-4.9)
[2019-04-11] MEDS ORDERED: POTASSIUM CHLORIDE 20MEQ/PACKET PO SCH (07:15)
[2019-04-11] MEDS ORDERED: POTASSIUM PHOS,M-BASIC-D-BASIC 15 MMOL in DEXT 5% WATER 245 ML IV ONE (08:00)
[2019-04-11] MEDS: CEFTRIAXONE 1 G PREMIX 50 ML IV SCH (08:21)
[2019-04-11] MEDS: ENOXAPARIN 40MG/0.4ML SYR SUBCUT SCH (08:21)
[2019-04-11] MEDS: MAGNESIUM 2 G PREMIX 50 ML IV SCH (08:22)
[2019-04-11] MEDS: SERTRALINE HCL 100MG TABLET PO SCH (08:22)
[2019-04-11] MEDS: METOPROLOL TARTRATE 50MG TABLET PO SCH ×2 (08:22→21:20)
[2019-04-11] MEDS: THIAMINE HCL 100MG TABLET PO SCH (08:22)
[2019-04-11] MEDS: FOLIC ACID 1MG TABLET PO SCH (08:22)
[2019-04-11 09:21] LABS: NUCLEATED RED BLOOD CELLS 3 /100 WBC; PLATELET ESTIMATE NORMAL
[2019-04-12] VITALS (16 sets, daily range): BP systolic 104–139; BP diastolic 49–88
[2019-04-12 05:40] LABS: CHLORIDE 105 mEq/L (98-107)
[2019-04-12 05:48] LABS: HEMATOCRIT. 27.8 % (36.0-48.0); HEMOGLOBIN. 9.5 g/dL (12.0-16.0); MEAN CORPUSCULAR HEMOGLOBIN 40.1 pg (28.0-32.0); MEAN CORPUSCULAR VOLUME 117.8 fL (81.0-99.0); PLATELET 164 x1000/uL (130-400); RED BLOOD CELL COUNT 2.36 mill/uL (4.2-5.4); RED CELL DISTRIBUTION WIDTH 15.7 % (11.6-14.6)
[2019-04-12 05:56] LABS: PHOSPHORUS 3.2 mg/dL (2.5-4.9)
[2019-04-12] MEDS: LACTULOSE 20G/30ML UDC PO SCH ×3 (06:00→21:55)
[2019-04-12] MEDS: CHLORDIAZEPOXIDE 5 MG CAPSULE PO SCH ×3 (06:16→21:56)
[2019-04-12] MEDS: FOLIC ACID 1MG TABLET PO SCH (08:56)
[2019-04-12] MEDS: THIAMINE HCL 100MG TABLET PO SCH (08:56)
[2019-04-12] MEDS: METOPROLOL TARTRATE 50MG TABLET PO SCH ×2 (08:56→21:00)
[2019-04-12] MEDS: ENOXAPARIN 40MG/0.4ML SYR SUBCUT SCH (08:57)
[2019-04-12] MEDS: CEFTRIAXONE 1 G PREMIX 50 ML IV SCH (09:03)
[2019-04-12] MEDS: MAGNESIUM 2 G PREMIX 50 ML IV SCH (09:52)
[2019-04-12] MEDS: SODIUM CHLORIDE 0.45% 1,000 ML IV SCH ×2 (10:30→22:43)
[2019-04-12] MEDS: SERTRALINE HCL 100MG TABLET PO SCH (14:26)
[2019-04-12 16:10] LABS: PLATELET ESTIMATE NORMAL
[2019-04-12] MEDS: APIXABAN 2.5 MG TABLET PO SCH (21:56)
[2019-04-13] VITALS (16 sets, daily range): BP systolic 107–177; BP diastolic 56–120
[2019-04-13] MEDS: CHLORDIAZEPOXIDE 5 MG CAPSULE PO SCH ×3 (06:33→21:08)
[2019-04-13] MEDS: LACTULOSE 20G/30ML UDC PO SCH ×2 (06:33→16:24)
[2019-04-13] MEDS: THIAMINE HCL 100MG TABLET PO SCH (08:11)
[2019-04-13] MEDS: METOPROLOL TARTRATE 50MG TABLET PO SCH (08:11)
[2019-04-13] MEDS: FOLIC ACID 1MG TABLET PO SCH (08:11)
[2019-04-13] MEDS: CEFTRIAXONE 1,000 MG in DEXTROSE 5% WATER 50 ML IV SCH (08:11)
[2019-04-13] MEDS: APIXABAN 2.5 MG TABLET PO SCH ×2 (08:11→21:09)
[2019-04-13] MEDS ORDERED: CEFTRIAXONE 1,000 MG in DEXTROSE 5% WATER 50 ML IV SCH (09:00)
[2019-04-13] MEDS: DILTIAZEM HCL 30MG TABLET PO SCH ×3 (10:49→21:09)
[2019-04-13] MEDS: SERTRALINE HCL 100MG TABLET PO SCH ×2 (10:57→16:23)
[2019-04-13 11:58] LABS: HEMOGLOBIN. 10.4 g/dL (12.0-16.0); MEAN CORPUSCULAR HEMOGLOBIN 39.3 pg (28.0-32.0); MEAN CORPUSCULAR VOLUME 117.1 fL (81.0-99.0); MEAN PLATELET VOLUME 9.4 fl (7.4-10.4); PLATELET 195 x1000/uL (130-400); RED BLOOD CELL COUNT 2.65 mill/uL (4.2-5.4); RED CELL DISTRIBUTION WIDTH 15.6 % (11.6-14.6)
[2019-04-13 12:10] LABS: CHLORIDE 105 mEq/L (98-107)
[2019-04-13 14:16] LABS: NUCLEATED RED BLOOD CELLS 1 /100 WBC
[2019-04-13 14:17] LABS: PLATELET ESTIMATE NORMAL
[2019-04-13] MEDS: SODIUM CHLORIDE 0.45% 1,000 ML IV SCH (16:58)
[2019-04-13] MEDS: METOPROLOL TARTRATE 25MG TABLET PO SCH (21:08)
[2019-04-14] VITALS (13 sets, daily range): BP systolic 123–154; BP diastolic 49–112
[2019-04-14] MEDS: CHLORDIAZEPOXIDE 5 MG CAPSULE PO SCH (06:29)
[2019-04-14] MEDS: DILTIAZEM HCL 30MG TABLET PO SCH ×2 (06:29→13:19)
[2019-04-14 07:34] LABS: HEMATOCRIT. 28.2 % (36.0-48.0); HEMOGLOBIN. 9.6 g/dL (12.0-16.0); MEAN CORPUSCULAR HEMOGLOBIN 39.6 pg (28.0-32.0); MEAN CORPUSCULAR VOLUME 115.8 fL (81.0-99.0); PLATELET 216 x1000/uL (130-400); RED BLOOD CELL COUNT 2.44 mill/uL (4.2-5.4); RED CELL DISTRIBUTION WIDTH 15.2 % (11.6-14.6)
[2019-04-14 08:17] LABS: CHLORIDE 106 mEq/L (98-107)
[2019-04-14] MEDS: APIXABAN 2.5 MG TABLET PO SCH ×2 (08:49→21:47)
[2019-04-14] MEDS: CEFTRIAXONE 1,000 MG in DEXTROSE 5% WATER 50 ML IV SCH (08:49)
[2019-04-14] MEDS: SERTRALINE HCL 100MG TABLET PO SCH (08:50)
[2019-04-14] MEDS: FOLIC ACID 1MG TABLET PO SCH (08:50)
[2019-04-14] MEDS: METOPROLOL TARTRATE 25MG TABLET PO SCH ×2 (08:50→21:48)
[2019-04-14] MEDS: THIAMINE HCL 100MG TABLET PO SCH (08:50)
[2019-04-14] MEDS: LACTULOSE 20G/30ML UDC PO SCH ×2 (08:51→17:27)
[2019-04-14] MEDS ORDERED: POTASSIUM CHLORIDE 20MEQ TABLET SR PO SCH (10:00)
[2019-04-14] MEDS ORDERED: MAGNESIUM 2 G PREMIX 50 ML IV SCH (11:00)
[2019-04-14] MEDS: SODIUM CHLORIDE 0.45% 1,000 ML IV SCH (13:17)
[2019-04-14 13:23] LABS: NUCLEATED RED BLOOD CELLS 5 /100 WBC
[2019-04-14 13:24] LABS: PLATELET ESTIMATE NORMAL
[2019-04-14] MEDS: DILTIAZEM HCL 60MG TABLET PO SCH ×3 (14:00→17:30)
[2019-04-14] MEDS ORDERED: APIX5TAB PO (20:22)
[2019-04-14] MEDS ORDERED: DIGO250T81 MT (20:22)
[2019-04-14] MEDS ORDERED: MEGE400O23 PO (20:22)
[2019-04-14] MEDS ORDERED: ATOR40TA70 MT (20:23)
[2019-04-14] MEDS ORDERED: DIAZ5TAB4 PO (20:24)
[2019-04-14] MEDS ORDERED: LOSA25TA26 MT (20:24)
[2019-04-15] MEDS: DILTIAZEM HCL 60MG TABLET PO SCH ×4 (01:03→18:22)
[2019-04-15] MEDS ORDERED: IPRATROPIUM/ALBUTEROL 0.5-3(2.5)MG/3ML NEB HHN PRN (03:15)
[2019-04-15 04:00] VITALS: BP 137/83
[2019-04-15] MEDS: SODIUM CHLORIDE 0.45% 1,000 ML IV SCH ×2 (05:51→21:08)
[2019-04-15 07:35] LABS: INR 1.2; PROTHROMBIN TIME 12.3 sec (9.6-11.0)
[2019-04-15 07:49] LABS: CHLORIDE 107 mEq/L (98-107)
[2019-04-15 07:52] LABS: HEMATOCRIT. 28.2 % (36.0-48.0); HEMOGLOBIN. 9.5 g/dL (12.0-16.0); MEAN CORPUSCULAR HEMOGLOBIN 39.1 pg (28.0-32.0); MEAN CORPUSCULAR VOLUME 115.8 fL (81.0-99.0); MEAN PLATELET VOLUME 8.7 fl (7.4-10.4); PLATELET 236 x1000/uL (130-400); RED BLOOD CELL COUNT 2.43 mill/uL (4.2-5.4); RED CELL DISTRIBUTION WIDTH 15.3 % (11.6-14.6)
[2019-04-15 08:00] VITALS: BP 142/74
[2019-04-15] MEDS: APIXABAN 2.5 MG TABLET PO SCH ×2 (09:03→21:05)
[2019-04-15] MEDS: LACTULOSE 20G/30ML UDC PO SCH ×2 (09:03→18:22)
[2019-04-15] MEDS: THIAMINE HCL 100MG TABLET PO SCH (09:04)
[2019-04-15] MEDS: METOPROLOL TARTRATE 25MG TABLET PO SCH ×2 (09:04→21:05)
[2019-04-15] MEDS: FOLIC ACID 1MG TABLET PO SCH (09:04)
[2019-04-15] MEDS: SERTRALINE HCL 100MG TABLET PO SCH (09:04)
[2019-04-15] MEDS: CEFTRIAXONE 1,000 MG in DEXTROSE 5% WATER 50 ML IV SCH (09:05)
[2019-04-15 09:53] LABS: PLATELET ESTIMATE NORMAL
[2019-04-15 12:00] VITALS: BP 138/79
[2019-04-15 16:00] VITALS: BP 128/84
[2019-04-15 20:00] VITALS: BP 126/77
[2019-04-16] VITALS: BP 116/55
[2019-04-16] MEDS: DILTIAZEM HCL 60MG TABLET PO SCH ×4 (01:27→17:36)
[2019-04-16 04:00] VITALS: BP 100/67
[2019-04-16 08:00] VITALS: BP 93/44
[2019-04-16] MEDS: METOPROLOL TARTRATE 25MG TABLET PO SCH (09:00)
[2019-04-16] MEDS: APIXABAN 2.5 MG TABLET PO SCH (09:56)
[2019-04-16] MEDS: LACTULOSE 20G/30ML UDC PO SCH ×2 (09:56→17:34)
[2019-04-16] MEDS: THIAMINE HCL 100MG TABLET PO SCH (09:56)
[2019-04-16] MEDS: FOLIC ACID 1MG TABLET PO SCH (09:56)
[2019-04-16] MEDS: SERTRALINE HCL 100MG TABLET PO SCH (10:12)
[2019-04-16] MEDS ORDERED: MAGNESIUM 2 G PREMIX 50 ML IV ONE (10:30)
[2019-04-16 12:00] VITALS: BP 106/64
[2019-04-16 16:00] VITALS: BP_SYST 126; BP_SYST 130; BP_DIAS 70; BP_DIAS 72
[2019-04-16 19:00] VITALS: BP 126/72
[2019-04-16] MEDS ORDERED: DILT60TA41 MT (19:44)
[2019-04-16] MEDS ORDERED: FOLI-43 PO (19:45)
[2019-04-16] MEDS ORDERED: LOPHC2 PO (19:45)
[2019-04-16] MEDS ORDERED: LACT10SO30 MT (19:46)
[2019-04-16] MEDS ORDERED: THIA100T72 PO (19:46)
[2019-04-16] MEDS ORDERED: ATORVASTATIN CALCIUM 20MG TABLET PO SCH (21:00)
== END 2019-04-16 20:25 | DRG 432 ==
LOC: ER 13:23 → CVICU 16:35 → EDBEDREQSVC 16:40 → EDBEDREQ 16:40 → EDBEDREQSVC 18:03 → ENRESERV 21:01 → 3WST 04-11 15:28 → 7WST 04-14 23:50
PROVIDERS: ADMIT Internal Medicine; ATTEND Internal Medicine
DX: K70.31 Alcoholic cirrhosis of liver with ascites (principal); G92 Toxic encephalopathy; K72.00 Acute and subacute hepatic failure without coma; I48.19 Other persistent atrial fibrillation; I11.0 Hypertensive heart disease with heart failure; D69.59 Other secondary thrombocytopenia; E83.42 Hypomagnesemia; E87.6 Hypokalemia; F10.10 Alcohol abuse, uncomplicated; I07.1 Rheumatic tricuspid insufficiency; I25.10 Atherosclerotic heart disease of native coronary artery without angina pectoris; I50.9 Heart failure, unspecified; J44.9 Chronic obstructive pulmonary disease, unspecified; F17.210 Nicotine dependence, cigarettes, uncomplicated; M19.90 Unspecified osteoarthritis, unspecified site; E78.5 Hyperlipidemia, unspecified; I49.5 Sick sinus syndrome; E80.6 Other disorders of bilirubin metabolism; Z79.899 Other long term (current) drug therapy; Z90.49 Acquired absence of other specified parts of digestive tract; Z95.0 Presence of cardiac pacemaker; Z86.73 Personal history of transient ischemic attack (TIA), and cerebral infarction without residual deficits; Z91.19 Patient's noncompliance with other medical treatment and regimen; Z79.01 Long term (current) use of anticoagulants; I25.2 Old myocardial infarction
CPT/HCPCS: 36415; 71045; 76700; 80048; 80076; 80162; 80305; 80320; 81003; 82105; 82140; 82550; 82553; 82607; 82746; 83605; 83735; 83880; 84100; 84443; 84484; 85027; 86705; 86709; 86803; 87340; 93005; 93306; 96365; 97162; 99291; J0282; J0696; J1160; J1650; J2060; J3475; J3480; J3490; J7030; J7040; J7042; J7060; G0480

== ENCOUNTER 2019-05-02 15:08 | Inpatient (IN) | payer MEDICARE, MEDICAID ==
[~2019-05-02] VITALS: Ht 160 cm; Wt 59.0 kg
[~2019-05-02 15:08] MED LIST changes: -APIX2.5T PO; +APIX5TAB PO; -ASPI325T85 PO; -ATOR20TA65 PO; +ATOR40TA70 MT; +DIAZ5TAB4 PO; -DIGO125T82 PO; +DIGO250T81 MT; -DILT180C3 PO; +DILT60TA41 MT; +FOLI-43 PO; +LACT10SO30 MT; +LOPHC2 PO; +LOSA25TA26 MT; +MEGE400O23 PO
[2019-05-02] MEDS ORDERED: ALBUTEROL (0.083%) 2.5MG/3ML NEB HHN STA (15:31)
[2019-05-02] MEDS ORDERED: IPRATROPIUM BROMIDE (0.02%) 0.5MG/2.5ML NEB HHN STA (15:31)
[2019-05-02] MEDS ORDERED: METHYLPREDNISOLONE SOD SUCC 125 MG/2 ML VIAL IV STA (15:31)
[2019-05-02 15:59] LABS: BG BASE EXCESS -1.8 mmol/L (-2.0-2.0); BG DEOXYHEMOGLOBIN 21.2 % (0.0-5.0); BG FRACTION INSPIRED OXYGEN 21; BG HCO3 ACT 20.5 mmol/L (22.0-26.0); BG METHEMOGLOBIN 0.2 % (0.0-1.5); BG OXYGEN SATURATION 78.5 % (92.0-98.5); BG OXYHEMOGLOBIN 77.6 % (94.0-97.0); BG PCO2 28.1 mmHg (35.0-45.0); BG PH 7.481 (7.350-7.450); BG PO2 44.6 mmHg (75.0-100.0); BG SAMPLE SITE RIGHT RADIAL; BG TOTAL HEMOGLOBIN 12.6 g/dL (12.0-18.0); BG VENT MODE ROOM AIR
[2019-05-02 16:09] LABS: BASOPHILS % 0.4 % (0.0-2.0); EOSINOPHILS % 0.1 % (0.0-5.0); HEMATOCRIT. 34.7 % (36.0-48.0); HEMOGLOBIN. 11.5 g/dL (12.0-16.0); LYMPHOCYTES % 21.1 % (20.0-50.0); MEAN CORPUSCULAR HEMOGLOBIN 36.1 pg (28.0-32.0); MEAN CORPUSCULAR VOLUME 108.6 fL (81.0-99.0); MEAN PLATELET VOLUME 8.8 fl (7.4-10.4); NEUTROPHILS % 66.4 % (40.0-76.0); PLATELET 313 x1000/uL (130-400)
[2019-05-02 16:15] LABS: CHLORIDE 114 mEq/L (98-107)
[2019-05-02 16:17] LABS: INR 1.3; PARTIAL THROMBOPLASTIN TIME 30.7 sec (23.4-31.0); PROTHROMBIN TIME 13.3 sec (9.6-11.0)
[2019-05-02] MEDS ORDERED: CEFTRIAXONE 1 G PREMIX 50 ML IV ONE (16:30)
[2019-05-02] MEDS ORDERED: FUROSEMIDE 100MG/10ML VIAL IVP NR (16:30)
[2019-05-02] MEDS ORDERED: DOCUSATE SODIUM 100MG CAPSULE PO PRN (17:45)
[2019-05-02] MEDS ORDERED: NITROGLYCERIN 0.4MG TABLET SL SL PRN (17:45)
[2019-05-02] MEDS ORDERED: IPRATROPIUM/ALBUTEROL 0.5-3(2.5)MG/3ML NEB NEB PRN (17:45)
[2019-05-02] MEDS ORDERED: IPRATROPIUM/ALBUTEROL 0.5-3(2.5)MG/3ML NEB HHN SCH (17:45)
[2019-05-02] MEDS ORDERED: ACETAMINOPHEN 325MG TABLET PO PRN (17:45)
[2019-05-02] MEDS ORDERED: ZOLPIDEM TARTRATE 5MG TABLET PO PRN (17:45)
[2019-05-02] MEDS ORDERED: TRAMADOL 50MG TABLET PO PRN (17:45)
[2019-05-02] MEDS ORDERED: CLONIDINE 0.1MG TABLET PO PRN (17:45)
[2019-05-02] MEDS ORDERED: GUAIFENESIN 200MG/10ML SUGAR FREE UDC PO PRN (17:45)
[2019-05-02] MEDS ORDERED: LORAZEPAM 0.5MG TABLET PO PRN (17:45)
[2019-05-02] MEDS ORDERED: MAGNESIUM/ALUMINUM HYDROXIDE/SIMETHICONE 30ML UDC PO PRN (17:45)
[2019-05-02] MEDS ORDERED: ONDANSETRON HCL 4MG/2ML INJ IV PRN (17:45)
[2019-05-02] MEDS ORDERED: LEVOFLOXACIN 500MG PREMIX 100 ML IV NR (19:15)
[2019-05-02] MEDS ORDERED: ENOXAPARIN 40MG/0.4ML SYR SUBCUT NR (19:15)
[2019-05-02] MEDS ORDERED: GUAIFENESIN/DM 600MG/30MG ER TAB 12HR PO NR (19:15)
[2019-05-02 22:40] LABS: TOTAL IRON BINDING CAPACITY 159 ug/dL (250-450)
[2019-05-02 23:05] LABS: FOLIC ACID (FOLATE) SERUM > 20.00 ng/mL (>5.38)
[2019-05-02 23:06] LABS: VITAMIN B12 SERUM > 2000.0 pg/mL (211-911)
[2019-05-02 23:58] LABS: CREATINE KINASE MB FRACTION 1.8 ng/mL (0.5-3.6)
[2019-05-03] VITALS (11 sets, daily range): BP systolic 90–131; BP diastolic 59–86
[2019-05-03] MEDS: APIXABAN 5 MG TABLET PO SCH ×2 (05:38→17:29)
[2019-05-03] MEDS: DILTIAZEM HCL 60MG TABLET PO SCH ×3 (05:38→17:34)
[2019-05-03 07:43] LABS: CREATINE KINASE MB FRACTION 2.7 ng/mL (0.5-3.6)
[2019-05-03] MEDS: GUAIFENESIN/DM 600MG/30MG ER TAB 12HR PO SCH ×2 (09:00→20:09)
[2019-05-03 09:01] LABS: BG BASE EXCESS -1.5 mmol/L (-2.0-2.0); BG CARBOXYHEMOGLOBIN 0.6 % (0.5-1.5); BG DEOXYHEMOGLOBIN 1.7 % (0.0-5.0); BG FRACTION INSPIRED OXYGEN 60; BG HCO3 ACT 23.8 mmol/L (22.0-26.0); BG METHEMOGLOBIN 0.3 % (0.0-1.5); BG OXYGEN SATURATION 98.3 % (92.0-98.5); BG OXYHEMOGLOBIN 97.4 % (94.0-97.0); BG PCO2 42.3 mmHg (35.0-45.0); BG PH 7.368 (7.350-7.450); BG PO2 122.6 mmHg (75.0-100.0); BG SAMPLE SITE RIGHT RADIAL; BG TOTAL HEMOGLOBIN 14.5 g/dL (12.0-18.0); BG VENT MODE MASK - BIPAP; BG VENT RATE 16 set
[2019-05-03 11:24] LABS: CLARITY URINE CLEAR (CLEAR); COLOR URINE DARK YELLOW (YELLOW); KETONES URINE NEGATIVE (NEGATIVE); LEUKOCYTE ESTERASE URINE NEGATIVE (NEGATIVE); NITRITE URINE NEGATIVE (NEGATIVE); OCCULT BLOOD URINE 1+ (NEGATIVE); PROTEIN URINE NEGATIVE (NEGATIVE); SPECIFIC GRAVITY URINE 1.014 (1.005-1.030)
[2019-05-03 12:09] LABS: *COCAINE SCREEN URINE NEGATIVE (NEGATIVE); METHADONE URINE SCREEN NEGATIVE (NEGATIVE)
[2019-05-03] MEDS: FUROSEMIDE 40MG/4ML VIAL IVP SCH ×2 (12:09→20:05)
[2019-05-03 12:10] LABS: *AMPHETAMINES SCREEN URINE NEGATIVE (NEGATIVE); *BARBITURATES SCREEN URINE NEGATIVE (NEGATIVE); *BENZODIAZEPINES SCREEN URINE PRESUMTIVE POSITIVE (NEGATIVE); CANNABINOID URINE SCREEN NEGATIVE (NEGATIVE); OPIATES URINE SCREEN NEGATIVE (NEGATIVE); PHENCYCLIDINE URINE SCREEN NEGATIVE (NEGATIVE)
[2019-05-03] MEDS: ZINC SULFATE 220 MG ( 50 ) CAPSULE PO SCH (12:10)
[2019-05-03] MEDS: SPIRONOLACTONE 25MG TABLET PO SCH ×2 (12:10→20:05)
[2019-05-03] MEDS: FAMOTIDINE 20MG TABLET PO SCH ×2 (12:10→20:05)
[2019-05-03] MEDS: ASCORBIC ACID 500 MG TABLET PO SCH ×2 (12:11→20:05)
[2019-05-03] MEDS ORDERED: DILTIAZEM HCL 5MG/ML 5ML VIAL IV SCH (15:10)
[2019-05-03] MEDS: DILTIAZEM HCL 125 MG in DEXT 5% WATER 100 ML IV SCH (15:39)
[2019-05-03] MEDS: IPRATROPIUM BROMIDE (0.02%) 0.5MG/2.5ML NEB HHN SCH ×2 (16:22→21:42)
[2019-05-03] MEDS ORDERED: CEFTRIAXONE 1 G PREMIX 50 ML IV SCH (17:00)
[2019-05-03] MEDS ORDERED: ENOXAPARIN 40MG/0.4ML SYR SUBCUT SCH (18:00)
[2019-05-03] MEDS ORDERED: DILTIAZEM HCL 5MG/ML 5ML VIAL IV NR ×2 (19:00→20:45)
[2019-05-03] MEDS: CEFTRIAXONE 1 G PREMIX 50 ML IV SCH (19:06)
[2019-05-03] MEDS ORDERED: LEVOFLOXACIN 500MG PREMIX 100 ML IV SCH (20:00)
[2019-05-03] MEDS: BUDESONIDE 0.5MG/2ML NEB HHN SCH (21:42)
[2019-05-04] VITALS (19 sets, daily range): BP systolic 94–118; BP diastolic 53–81
[2019-05-04] MEDS: DILTIAZEM HCL 60MG TABLET PO SCH ×4 (00:42→18:12)
[2019-05-04] MEDS: IPRATROPIUM BROMIDE (0.02%) 0.5MG/2.5ML NEB HHN SCH ×4 (02:20→21:03)
[2019-05-04] MEDS ORDERED: DIGOXIN 500MCG/2ML AMP IV SCH ×2 (04:00→06:45)
[2019-05-04] MEDS: APIXABAN 5 MG TABLET PO SCH ×2 (06:23→18:11)
[2019-05-04 07:44] LABS: HEMATOCRIT. 37.2 % (36.0-48.0); HEMOGLOBIN. 12.1 g/dL (12.0-16.0); MEAN CORPUSCULAR HEMOGLOBIN 35.8 pg (28.0-32.0); MEAN CORPUSCULAR VOLUME 110.5 fL (81.0-99.0); MEAN PLATELET VOLUME 9.6 fl (7.4-10.4); PLATELET 273 x1000/uL (130-400); RED BLOOD CELL COUNT 3.37 mill/uL (4.2-5.4); RED CELL DISTRIBUTION WIDTH 15.3 % (11.6-14.6)
[2019-05-04] MEDS: DILTIAZEM HCL 125 MG in DEXT 5% WATER 100 ML IV SCH ×4 (08:05→20:40)
[2019-05-04 08:12] LABS: CHLORIDE 112 mEq/L (98-107)
[2019-05-04] MEDS: FAMOTIDINE 20MG TABLET PO SCH ×2 (08:13→20:28)
[2019-05-04] MEDS: SPIRONOLACTONE 25MG TABLET PO SCH (08:13)
[2019-05-04] MEDS: ASCORBIC ACID 500 MG TABLET PO SCH ×2 (08:13→20:28)
[2019-05-04] MEDS: FUROSEMIDE 40MG/4ML VIAL IVP SCH ×2 (08:14→20:28)
[2019-05-04] MEDS: ZINC SULFATE 220 MG ( 50 ) CAPSULE PO SCH (08:14)
[2019-05-04] MEDS: GUAIFENESIN/DM 600MG/30MG ER TAB 12HR PO SCH ×2 (08:14→20:28)
[2019-05-04] MEDS: BUDESONIDE 0.5MG/2ML NEB HHN SCH ×2 (08:53→21:03)
[2019-05-04] MEDS ORDERED: MAGNESIUM 2 G PREMIX 50 ML IV NR (12:00)
[2019-05-04] MEDS ORDERED: KCL 20MEQ/100ML PREMIX 100 ML IV NR (12:30)
[2019-05-04] MEDS ORDERED: LIDOCAINE HCL 1% 20ML VIAL (Pyxis) INJ ONE (13:22)
[2019-05-04] MEDS ORDERED: SODIUM BICARBONATE 4% (2.4MEQ) 5ML VIAL IV ONE (13:22)
[2019-05-04] MEDS ORDERED: DILTIAZEM HCL 30MG TABLET PO SCH (14:15)
[2019-05-04] MEDS: LEVOFLOXACIN 500MG PREMIX 100 ML IV SCH (14:20)
[2019-05-04 17:41] LABS: PLATELET ESTIMATE NORMAL
[2019-05-04] MEDS: CEFTRIAXONE 1 G PREMIX 50 ML IV SCH (18:10)
[2019-05-04] MEDS: DIGOXIN 500MCG/2ML AMP IV SCH (18:11)
[2019-05-05] VITALS (12 sets, daily range): BP systolic 97–129; BP diastolic 61–81
[2019-05-05] MEDS: IPRATROPIUM BROMIDE (0.02%) 0.5MG/2.5ML NEB HHN SCH ×4 (01:22→21:14)
[2019-05-05 01:27] LABS: BG BASE EXCESS -3.1 mmol/L (-2.0-2.0); BG BILEVEL POS AIRWAY PRESSURE 15/5; BG CARBOXYHEMOGLOBIN 0.4 % (0.5-1.5); BG DEOXYHEMOGLOBIN 4.6 % (0.0-5.0); BG FRACTION INSPIRED OXYGEN 75; BG HCO3 ACT 19.6 mmol/L (22.0-26.0); BG METHEMOGLOBIN 0.2 % (0.0-1.5); BG OXYGEN SATURATION 95.4 % (92.0-98.5); BG OXYHEMOGLOBIN 94.8 % (94.0-97.0); BG PCO2 28.5 mmHg (35.0-45.0); BG PH 7.455 (7.350-7.450); BG PO2 81.2 mmHg (75.0-100.0); BG SAMPLE SITE RIGHT BRACHIAL; BG TOTAL HEMOGLOBIN 12.6 g/dL (12.0-18.0); BG VENT MODE MASK - BIPAP
[2019-05-05] MEDS: DILTIAZEM HCL 60MG TABLET PO SCH ×2 (01:34→06:31)
[2019-05-05] MEDS: DILTIAZEM HCL 125 MG in DEXT 5% WATER 100 ML IV SCH ×2 (05:26→14:33)
[2019-05-05] MEDS: APIXABAN 5 MG TABLET PO SCH (06:31)
[2019-05-05] MEDS: FUROSEMIDE 40MG/4ML VIAL IVP SCH ×2 (08:05→22:00)
[2019-05-05] MEDS: FAMOTIDINE 20MG/2ML VIAL IV SCH (08:05)
[2019-05-05 08:07] LABS: HEMOGLOBIN 11.5 g/dL (12.0-16.0); MEAN CORPUSCULAR HEMOGLOBIN 35.1 pg (28.0-32.0); PLATELET 267 x1000/uL (130-400); RED BLOOD CELL COUNT 3.27 mill/uL (4.2-5.4); RED CELL DISTRIBUTION WIDTH 14.7 % (11.6-14.6)
[2019-05-05] MEDS: GUAIFENESIN/DM 600MG/30MG ER TAB 12HR PO SCH ×2 (09:00→21:00)
[2019-05-05] MEDS: ZINC SULFATE 220 MG ( 50 ) CAPSULE PO SCH (09:00)
[2019-05-05] MEDS: ASCORBIC ACID 500 MG TABLET PO SCH ×2 (09:00→21:00)
[2019-05-05] MEDS: MULTIVITAMINS,THER W-MINERALS TABLET PO SCH ×2 (09:00→09:45)
[2019-05-05] MEDS ORDERED: ASCORBIC ACID 250 MG TABLET PO SCH (09:00)
[2019-05-05] MEDS: BUDESONIDE 0.5MG/2ML NEB HHN SCH ×2 (09:44→21:15)
[2019-05-05] MEDS: THIAMINE HCL 100MG TABLET PO SCH (09:45)
[2019-05-05] MEDS: FOLIC ACID 1MG TABLET PO SCH (09:45)
[2019-05-05 09:53] LABS: CHLORIDE 111 mEq/L (98-107)
[2019-05-05 10:21] LABS: ETHANOL BLOOD < 10 mg/dL
[2019-05-05] MEDS ORDERED: MAGNESIUM 2 G PREMIX 50 ML IV NR (10:30)
[2019-05-05] MEDS: INSULIN LISPRO 100 UNITS/ML SUBCUT SCH ×3 (12:20→21:00)
[2019-05-05] MEDS ORDERED: DEXTROSE 50% WATER 50ML SYRINGE IV PRN (12:30)
[2019-05-05] MEDS ORDERED: POTASSIUM CHLORIDE INJ 40 MEQ in DEXT 5% WATER 250 ML IV NR (13:00)
[2019-05-05] MEDS: LEVOFLOXACIN 500MG PREMIX 100 ML IV SCH (14:09)
[2019-05-05] MEDS: DIGOXIN 500MCG/2ML AMP IV SCH (16:36)
[2019-05-05] MEDS ORDERED: DEXT 5%/0.45% NACL 1000ML 1,000 ML IV SCH (17:00)
[2019-05-05] MEDS: BLOOD SUGAR DIAGNOSTIC STRIP TEST SCH ×2 (17:05→21:00)
[2019-05-05 19:18] LABS: *AMPHETAMINES SCREEN URINE NEGATIVE (NEGATIVE); *BARBITURATES SCREEN URINE NEGATIVE (NEGATIVE); *BENZODIAZEPINES SCREEN URINE PRESUMTIVE POSITIVE (NEGATIVE); *COCAINE SCREEN URINE NEGATIVE (NEGATIVE); METHADONE URINE SCREEN NEGATIVE (NEGATIVE)
[2019-05-05 19:21] LABS: CANNABINOID URINE SCREEN NEGATIVE (NEGATIVE); OPIATES URINE SCREEN PRESUMTIVE POSITIVE (NEGATIVE); PHENCYCLIDINE URINE SCREEN NEGATIVE (NEGATIVE)
[2019-05-06] VITALS (15 sets, daily range): BP systolic 107–136; BP diastolic 66–93
[2019-05-06] MEDS: DILTIAZEM HCL 125 MG in DEXT 5% WATER 100 ML IV SCH ×4 (00:09→21:13)
[2019-05-06] MEDS: IPRATROPIUM BROMIDE (0.02%) 0.5MG/2.5ML NEB HHN SCH ×5 (01:19→19:46)
[2019-05-06] MEDS: BLOOD SUGAR DIAGNOSTIC STRIP TEST SCH ×4 (06:57→21:30)
[2019-05-06] MEDS: INSULIN LISPRO 100 UNITS/ML SUBCUT SCH ×4 (07:20→21:00)
[2019-05-06 07:25] LABS: BG BASE EXCESS 3.2 mmol/L (-2.0-2.0); BG BILEVEL POS AIRWAY PRESSURE 15/5; BG CARBOXYHEMOGLOBIN 0.7 % (0.5-1.5); BG DEOXYHEMOGLOBIN 3.3 % (0.0-5.0); BG FRACTION INSPIRED OXYGEN 50; BG HCO3 ACT 27.4 mmol/L (22.0-26.0); BG METHEMOGLOBIN 0.2 % (0.0-1.5); BG OXYGEN SATURATION 96.7 % (92.0-98.5); BG OXYHEMOGLOBIN 95.8 % (94.0-97.0); BG PCO2 40.5 mmHg (35.0-45.0); BG PH 7.448 (7.350-7.450); BG PO2 86.6 mmHg (75.0-100.0); BG SAMPLE SITE RIGHT BRACHIAL; BG TOTAL HEMOGLOBIN 13.1 g/dL (12.0-18.0); BG VENT MODE MASK - BIPAP; BG VENT RATE 14 set
[2019-05-06] MEDS: BUDESONIDE 0.5MG/2ML NEB HHN SCH ×2 (07:58→12:09)
[2019-05-06] MEDS: FAMOTIDINE 20MG/2ML VIAL IV SCH (08:35)
[2019-05-06] MEDS: FUROSEMIDE 40MG/4ML VIAL IVP SCH ×2 (08:35→21:26)
[2019-05-06] MEDS: MULTIVITAMINS,THER W-MINERALS TABLET PO SCH ×2 (09:00)
[2019-05-06] MEDS: THIAMINE HCL 100MG TABLET PO SCH (09:00)
[2019-05-06] MEDS: ZINC SULFATE 220 MG ( 50 ) CAPSULE PO SCH (09:00)
[2019-05-06] MEDS: ASCORBIC ACID 500 MG TABLET PO SCH ×2 (09:00→21:26)
[2019-05-06] MEDS: GUAIFENESIN/DM 600MG/30MG ER TAB 12HR PO SCH ×2 (09:00→21:26)
[2019-05-06] MEDS: FOLIC ACID 1MG TABLET PO SCH (09:00)
[2019-05-06 09:17] LABS: HEMATOCRIT. 36.9 % (36.0-48.0); HEMOGLOBIN. 12.3 g/dL (12.0-16.0); MEAN CORPUSCULAR HEMOGLOBIN 35.2 pg (28.0-32.0); MEAN CORPUSCULAR VOLUME 105.5 fL (81.0-99.0); MEAN PLATELET VOLUME 9.8 fl (7.4-10.4); PLATELET 275 x1000/uL (130-400); RED BLOOD CELL COUNT 3.49 mill/uL (4.2-5.4); RED CELL DISTRIBUTION WIDTH 14.9 % (11.6-14.6)
[2019-05-06 09:36] LABS: CHLORIDE 106 mEq/L (98-107)
[2019-05-06 10:30] LABS: NUCLEATED RED BLOOD CELLS 1 /100 WBC
[2019-05-06 10:31] LABS: PLATELET ESTIMATE NORMAL
[2019-05-06] MEDS ORDERED: MAGNESIUM 2 G PREMIX 50 ML IV SCH (14:00)
[2019-05-06] MEDS ORDERED: POTASSIUM CHLORIDE INJ 40 MEQ in DEXT 5% WATER 250 ML IV SCH (14:00)
[2019-05-06] MEDS: LEVOFLOXACIN 500MG PREMIX 100 ML IV SCH (15:01)
[2019-05-06] MEDS: DIGOXIN 500MCG/2ML AMP IV SCH (18:03)
[2019-05-07] VITALS (12 sets, daily range): BP systolic 105–135; BP diastolic 61–77
[2019-05-07] MEDS: IPRATROPIUM BROMIDE (0.02%) 0.5MG/2.5ML NEB HHN SCH ×4 (02:23→20:36)
[2019-05-07 06:22] LABS: BASOPHILS % 0.2 % (0.0-2.0); EOSINOPHILS % 0.1 % (0.0-5.0); HEMATOCRIT. 37.2 % (36.0-48.0); HEMOGLOBIN. 12.5 g/dL (12.0-16.0); LYMPHOCYTES % 7.5 % (20.0-50.0); MEAN CORPUSCULAR HEMOGLOBIN 35.6 pg (28.0-32.0); MEAN CORPUSCULAR VOLUME 105.6 fL (81.0-99.0); MEAN PLATELET VOLUME 9.7 fl (7.4-10.4); MONOCYTES % 13.6 % (2.0-8.0); NEUTROPHILS % 78.6 % (40.0-76.0); PLATELET 250 x1000/uL (130-400); RED BLOOD CELL COUNT 3.52 mill/uL (4.2-5.4); RED CELL DISTRIBUTION WIDTH 14.9 % (11.6-14.6)
[2019-05-07 06:27] LABS: CHLORIDE 103 mEq/L (98-107)
[2019-05-07] MEDS: INSULIN LISPRO 100 UNITS/ML SUBCUT SCH ×4 (07:01→20:31)
[2019-05-07] MEDS: BLOOD SUGAR DIAGNOSTIC STRIP TEST SCH ×4 (07:01→20:31)
[2019-05-07] MEDS: FUROSEMIDE 40MG/4ML VIAL IVP SCH ×3 (08:57→20:42)
[2019-05-07] MEDS: GUAIFENESIN/DM 600MG/30MG ER TAB 12HR PO SCH ×2 (08:57→20:53)
[2019-05-07] MEDS: FOLIC ACID 1MG TABLET PO SCH (08:57)
[2019-05-07] MEDS: ZINC SULFATE 220 MG ( 50 ) CAPSULE PO SCH (08:58)
[2019-05-07] MEDS: MULTIVITAMINS,THER W-MINERALS TABLET PO SCH ×2 (08:58→08:59)
[2019-05-07] MEDS: THIAMINE HCL 100MG TABLET PO SCH (08:59)
[2019-05-07] MEDS: ASCORBIC ACID 500 MG TABLET PO SCH ×2 (08:59→20:42)
[2019-05-07] MEDS: FAMOTIDINE 20MG/2ML VIAL IV SCH (09:16)
[2019-05-07] MEDS ORDERED: POTASSIUM CHLORIDE 20MEQ/PACKET PO NR (10:00)
[2019-05-07] MEDS: DILTIAZEM HCL 125 MG in DEXT 5% WATER 100 ML IV SCH (12:33)
[2019-05-07] MEDS: LEVOFLOXACIN 500MG PREMIX 100 ML IV SCH (14:46)
[2019-05-07] MEDS: FAMOTIDINE 20MG TABLET PO SCH (18:00)
[2019-05-07] MEDS: DIGOXIN 500MCG/2ML AMP IV SCH (18:01)
[2019-05-07] MEDS ORDERED: TRAMADOL 50MG TABLET PO PRN (20:00)
[2019-05-08] VITALS (12 sets, daily range): BP systolic 110–141; BP diastolic 61–80
[2019-05-08] MEDS: IPRATROPIUM BROMIDE (0.02%) 0.5MG/2.5ML NEB HHN SCH ×4 (01:22→21:52)
[2019-05-08] MEDS: BLOOD SUGAR DIAGNOSTIC STRIP TEST SCH ×4 (05:59→21:00)
[2019-05-08] MEDS: INSULIN LISPRO 100 UNITS/ML SUBCUT SCH ×4 (06:00→21:00)
[2019-05-08 06:50] LABS: CHLORIDE 103 mEq/L (98-107)
[2019-05-08] MEDS: GUAIFENESIN/DM 600MG/30MG ER TAB 12HR PO SCH ×2 (08:37→21:00)
[2019-05-08] MEDS: THIAMINE HCL 100MG TABLET PO SCH ×2 (09:00→09:50)
[2019-05-08] MEDS: FAMOTIDINE 20MG TABLET PO SCH ×3 (09:00→17:00)
[2019-05-08] MEDS: MULTIVITAMINS,THER W-MINERALS TABLET PO SCH ×2 (09:00→09:50)
[2019-05-08] MEDS: ZINC SULFATE 220 MG ( 50 ) CAPSULE PO SCH ×2 (09:00→09:52)
[2019-05-08] MEDS: FOLIC ACID 1MG TABLET PO SCH ×2 (09:00→09:50)
[2019-05-08] MEDS: ASCORBIC ACID 500 MG TABLET PO SCH ×3 (09:00→21:00)
[2019-05-08] MEDS: FUROSEMIDE 40MG/4ML VIAL IVP SCH ×3 (09:50→22:40)
[2019-05-08] MEDS: ENOXAPARIN 60MG/0.6ML SYR SUBCUT SCH ×2 (09:51→21:00)
[2019-05-08] MEDS: DILTIAZEM HCL 125 MG in DEXT 5% WATER 100 ML IV SCH (10:00)
[2019-05-08] MEDS ORDERED: GUAIFENESIN-DM 200MG-20MG/10ML UDC PO SCH (12:00)
[2019-05-08] MEDS ORDERED: LEVOFLOXACIN 500MG TABLET PO SCH (14:00)
[2019-05-08] MEDS ORDERED: DILTIAZEM HCL 5MG/ML 5ML VIAL IV NR (15:30)
[2019-05-08] MEDS ORDERED: DILTIAZEM HCL 5MG/ML 5ML VIAL IV PRN (15:45)
[2019-05-08] MEDS: DIGOXIN 500MCG/2ML AMP IV SCH (17:48)
== END 2019-05-08 23:44 | disposition left against medical advice (07) | DRG 871 ==
LOC: ER 15:08 → 3WST 16:56 → EDBEDREQSVC 17:01 → EDBEDREQ 17:01 → SUPCPDRO 17:36 → EDBEDREQ 22:11 → EDBEDREQTM 22:12 → ENRESERV 05-03 00:19 → 3WST 05-03 02:24
PROVIDERS: ADMIT Internal Medicine; ATTEND Internal Medicine
PROC: 5A09357 Assistance with Respiratory Ventilation, Less than 24 Consecutive Hours, Continuous Positive Airway Pressure (ICD-10-PCS; 2019-05-02)
PROC: 5A09357 Assistance with Respiratory Ventilation, Less than 24 Consecutive Hours, Continuous Positive Airway Pressure (ICD-10-PCS; 2019-05-03)
PROC: 02HV33Z Insertion of Infusion Device into Superior Vena Cava, Percutaneous Approach (ICD-10-PCS; 2019-05-04)
PROC: B548ZZA Ultrasonography of Superior Vena Cava, Guidance (ICD-10-PCS; 2019-05-04)
PROC: 5A09357 Assistance with Respiratory Ventilation, Less than 24 Consecutive Hours, Continuous Positive Airway Pressure (ICD-10-PCS; 2019-05-04)
PROC: 5A09357 Assistance with Respiratory Ventilation, Less than 24 Consecutive Hours, Continuous Positive Airway Pressure (ICD-10-PCS; 2019-05-05)
PROC: 5A09357 Assistance with Respiratory Ventilation, Less than 24 Consecutive Hours, Continuous Positive Airway Pressure (ICD-10-PCS; 2019-05-06)
PROC: 4A00X4Z Measurement of Central Nervous Electrical Activity, External Approach (ICD-10-PCS; principal; 2019-05-07)
PROC: 5A09357 Assistance with Respiratory Ventilation, Less than 24 Consecutive Hours, Continuous Positive Airway Pressure (ICD-10-PCS; 2019-05-07)
DX: A41.9 Sepsis, unspecified organism (principal); I50.43 Acute on chronic combined systolic (congestive) and diastolic (congestive) heart failure; E43 Unspecified severe protein-calorie malnutrition; J96.01 Acute respiratory failure with hypoxia; G92 Toxic encephalopathy; E87.4 Mixed disorder of acid-base balance; J98.11 Atelectasis; N39.0 Urinary tract infection, site not specified; I48.19 Other persistent atrial fibrillation; I69.354 Hemiplegia and hemiparesis following cerebral infarction affecting left non-dominant side; I48.92 Unspecified atrial flutter; J84.9 Interstitial pulmonary disease, unspecified; E83.51 Hypocalcemia; E87.6 Hypokalemia; D63.8 Anemia in other chronic diseases classified elsewhere; I49.5 Sick sinus syndrome; F32.9 Major depressive disorder, single episode, unspecified; K74.60 Unspecified cirrhosis of liver; K70.9 Alcoholic liver disease, unspecified; E78.5 Hyperlipidemia, unspecified; F10.10 Alcohol abuse, uncomplicated; F17.210 Nicotine dependence, cigarettes, uncomplicated; G89.29 Other chronic pain; I07.1 Rheumatic tricuspid insufficiency; I11.0 Hypertensive heart disease with heart failure; Z95.0 Presence of cardiac pacemaker; D64.9 Anemia, unspecified; L89.159 Pressure ulcer of sacral region, unspecified stage; K57.90 Diverticulosis of intestine, part unspecified, without perforation or abscess without bleeding; Z90.49 Acquired absence of other specified parts of digestive tract; Z91.14 Patient's other noncompliance with medication regimen; Z79.01 Long term (current) use of anticoagulants; Z82.49 Family history of ischemic heart disease and other diseases of the circulatory system; Z91.19 Patient's noncompliance with other medical treatment and regimen; Z68.23 Body mass index [BMI] 23.0-23.9, adult
CPT/HCPCS: 36415; 36600; 71045; 72040; 76937; 80048; 80061; 80305; 80320; 81003; 82140; 82375; 82550; 82553; 82607; 82693; 82746; 82805; 82962; 83036; 83540; 83550; 83605; 83655; 83735; 83880; 84134; 84439; 84443; 84481; 84484; 85027; 85379; 87804; 92610; 93005; 93970; 94640; 94660; 96374; 99291; C1725; J0696; J1160; J1650; J1940; J1956; J2930; J3475; J3480; J3490; J7040; J7060; J7611; J7626; A4315; G0480